=== PATIENT | female | born 1990 | race Caucasian/White ===

== ENCOUNTER 2025-05-29 16:42 | Emergency (ER) | payer BC, SELFPAY ==
[2025-05-29 16:47] VITALS: BP 181/100
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
[2025-05-29 17:26] VITALS: BP 149/94
[2025-05-29 17:45] VITALS: BMI 43.9
[2025-05-29 17:46] VITALS: BP 149/94
[2025-05-29 18:00] VITALS: BP 134/74
[2025-05-29 18:03] LABS: Hematocrit 42.8 % (37.0-47.0); Hemoglobin 14.7 g/dL (12.0-16.0); Mean Corp Hgb Conc. 34.3 g/dL (33.0-37.0); Mean Corpuscular Volume 87.3 fL (81.0-99.0); Nucleated Red Blood Cells % 0 %; Platelet Count 284 10^3/uL (130-400); Red Cell Dist. Width 12.6 % (11.5-14.5)
[2025-05-29 18:29] LABS: ALT (SGPT) 22 U/L (0-35); AST (SGOT) 22 U/L (14-36); Albumin 4.5 g/dl (3.5-5.0); Alkaline Phosphatase 63 U/L (38-126); Blood Urea Nitrogen 11 mg/dl (7-17); Calcium 9.5 mg/dl (8.4-10.2); Carbon Dioxide 26 mmol/L (22-30); Chloride 102 mmol/L (98-107); Estimated Creatinine Clearance > 125 ml/min; Glucose 100 mg/dl (70-99); Potassium 4.4 mmol/L (3.5-5.1); Sodium 135 mmol/L (135-145); Total Protein 7.7 g/dl (6.3-8.2); eGFR > 60.00
[2025-05-29 18:43] LABS: D-Dimer < 0.27 ug/mlFEU (0.00-0.50)
[2025-05-29 19:00] VITALS: BP 150/104
[2025-05-29 20:00] VITALS: BP 166/136
[2025-05-29 21:00] LABS: Troponin I < 0.012 ng/ml
== END 2025-05-29 21:43 | disposition home or self-care (01) ==
LOC: EMR 16:42
PROVIDERS: EMERGENCY PHYSICIAN Student in an Organized Health Care Education/Training Program
DX: R00.2 Palpitations (principal); I10 Essential (primary) hypertension; Z79.899 Other long term (current) drug therapy
CPT/HCPCS: 99284; 80053; 84484; 85025; 85379; 93005